=== PATIENT | female | born 1960 | race Asian ===

== ENCOUNTER 2021-07-11 21:51 | Emergency (ER) | payer MEDICAID ==
[~2021-07-11] VITALS: Ht 157.5 cm; Wt 64.5 kg
[2021-07-12 01:16] VITALS: BP 128/78
[2021-07-12] MEDS ORDERED: DIATRIZOATE MEGLU/SOD 660/100 MG/ML 120 ML BOTTLE PEG ONE (02:00)
== END 2021-07-12 03:09 | disposition home or self-care (01) ==
LOC: EMS 21:51
DX: K94.23 Gastrostomy malfunction (principal); I10 Essential (primary) hypertension
CPT/HCPCS: 43762; 74018; 99284